=== PATIENT | female | born 1950 | race Hispanic/Latino ===

== ENCOUNTER 2018-02-18 08:01 | Emergency (ER) | payer MEDICARE ==
[~2018-02-18] VITALS: Ht 149.9 cm; Wt 80.3 kg
[2018-02-18 08:22] VITALS: BP 151/86
--- NOTE | 2018-02-18 08:24 | NUR ---
ARRIVAL PATIENT ARRIVED TO [facility]AT[facility], C/O OF NECK AND SHOULDER PAIN FOR THE PAST MONTH WITH LAST NIGHT AND THIS MORNING BEING THE WORSE. CAME TO ED FOR FURTHER EVAL.
[2018-02-18] MEDS ORDERED: TORADOL IM STA (08:25)
[2018-02-18] MEDS ORDERED: TORADOL ONE (08:27)
--- NOTE | 2018-02-18 08:29 | ER.PDOC ---
General Chief Complaint: Neck/Upper back Pain Stated Complaint: NECK PAIN Time seen by MD: 08:27 Source: patient Exam Limitations: no limitations History of Present Illness Initial Comments 67 year old THOMPSON with neck pain. Fell a month ago with no loss of consciousness. Fell on her side but neck has been hurting since then. No sensorimotor deficits Timing/Duration: other ( a month) Severity/Quality: moderate Method of Injury: fell Associated Symptoms: muscle spasms Allergies: Coded Allergies: aspirin (Verified Allergy, Unknown, 02/18/18) diphenhydramine (Unverified Allergy, Unknown, 04/09/14) Home Meds Unable to Obtain Active Prescriptions or Reported Meds Past Medical History Medical History: high cholesterol, hypertension Surgical History: cholecystectomy, hysterectomy, shoulder Social History Smoking: non-smoker Alcohol Use: none Drug Use: none Review of Systems Constitutional: no symptoms reported EENTM: no symptoms reported Respiratory: no symptoms reported Cardiovascular: no symptoms reported Gastrointestinal: no symptoms reported Genitourinary: no symptoms reported Musculoskeletal: see HPI Skin: no symptoms reported Psychiatric/Neurological: no symptoms reported Physical Exam General Appearance: No Apparent Distress, WD/WN HEENT: PERRL/EOMI, Normal ENT Inspection, TMs Normal, Pharynx Normal Neck: Limited Range of Motion, Muscle Spasm, Paraspinous Muscle Tender Cardiovascular/Respiratory: Regular Rate, Rhythm, No M/R/G, Normal Peripheral Pulses, No JVD, Normal Breath Sounds, No Respiratory Distress Gastrointestinal: Normal Bowel Sounds, No Organomegaly, No Pulsatile Mass, Non Tender, Soft Back: Normal Inspection, No CVA Tenderness, No Vertebral Tenderness Extremities: No Evidence of Injury, Normal Range of Motion, Non-Tender, No Pedal Edema, Pelvis Stable Neuro/Psych: Alert, 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, mood/effect nml, No Motor/Sensory Deficits, Relexes nml Skin: Normal Color, Warm/Dry Results/Orders Results/Orders Administered Medications Medications (Trade) Dose Ordered Sig/Lisa Route PRN Reason Start Time Stop Time Status Last Admin Dose Admin Ketorolac Tromethamine (Toradol) 30 mg STAT STAT IM 02/18/18 08:25 02/18/18 08:27 DC 02/18/18 08:30 Progress Progress Feeling better on recheck at 905am Departure Time of Disposition: 09:06 Disposition: 01 HOME, SELF-CARE Impression: Primary Impression: Cervicalgia Condition: Stable Referrals: PCP,UNKNOWN (PCP) PRIMARY CARE PROVIDER Scripts Unable to Obtain Active Prescriptions or Reported Meds Comments Patient does not want to wait for results of CT May go home on Robaxin and Meloxicam Follow up PCP RTER prn Duration or Time Spent with Pa: 30 SHIV ROBERSON MD Feb 18, 2018 08:29
--- NOTE | 2018-02-18 08:35 | NUR ---
CT PATIENT AMBULATORY TO CAT SCAN
--- NOTE | 2018-02-18 08:39 | NUR ---
CT PATIENT BACK FROM CAT SCAN.
[2018-02-18 09:20] VITALS: BP 141/71
--- NOTE | 2018-02-18 09:33 | DIREP ---
PROCEDURE: CT SPINE CERVICAL W/O COMPARISON:None. INDICATIONS:fall x 1 month ago FINDINGS: ALIGNMENT:Straightening and subtle reversal of the normal cervical lordosis. There is approximate 2 mm anterolisthesis of C4 on C5 which is likely degenerative. Vertebral body alignment is otherwise maintained. Facet joints are intact. VERTEBRAE:No compression deformity or acute fracture. PARASPINAL AREA:No suspicious abnormality of the imaged paraspinal soft tissues. CERVICAL DISC LEVELS Mild disc space narrowing at C5-C6 and C6-C7. Minimal disc space narrowing within the remainder of the cervical spine. Scattered facet arthropathy throughout the cervical spine. No definite spinal stenosis. Apparent fairly high-grade left neural foraminal encroachment at C4-C5. Scattered low to intermediate grade neural foraminal encroachment throughout the remainder of the cervical spine. CONCLUSION: 1. No acute osseous abnormality. 2. Multilevel degenerative disc and spine disease. No definite spinal stenosis; however, there is potentially clinically significant left neural foraminal encroachment at C4-C5 as discussed above. Dictated by: Toño Willis M.D. On 02/18/2018 at 09:27 AM
== END 2018-02-18 09:16 | disposition home or self-care (01) ==
LOC: ER 08:01
DX: M54.2 Cervicalgia (principal); E78.00 Pure hypercholesterolemia, unspecified; I10 Essential (primary) hypertension; Z88.6 Allergy status to analgesic agent; Z88.8 Allergy status to other drugs, medicaments and biological substances; Z90.49 Acquired absence of other specified parts of digestive tract; Z90.710 Acquired absence of both cervix and uterus
CPT/HCPCS: 72125; 96372; 99284; J1885